=== PATIENT | female | born 1990 | race Caucasian/White ===

== ENCOUNTER → 2018-02-11 | Outpatient (CLI) | payer OTHER ==
[~2018-02-11] MED LIST: CEFAZOLIN 2 GM/50 ML (PMX) 50 ML IVPB; FENTAnyl 50 MCG/ML VIAL; LACTATED RINGER'S 1,000 ML IV*; MIDAZOLAM 1 MG/ML 2 ML INJ; ONDANSETRON 4 MG INJ; PHENYLephrine (100 MCG/ML) 5ML SYG; PROPOFOL 20 ML
[2018-02-13 11:21] LABS: PROGESTERONE 20.9 ng/mL
== END | disposition home or self-care (01) ==
LOC: SDS 19:00 → LAB 08:00 → SDS 14:47
DX: Z01.818 Encounter for other preprocedural examination (principal); S52.91XA Unspecified fracture of right forearm, initial encounter for closed fracture; X58.XXXA Exposure to other specified factors, initial encounter; Y92.89 Other specified places as the place of occurrence of the external cause
CPT/HCPCS: 76801; 76817; 84144; 84702; 84703; 86900; 86901

== ENCOUNTER 2018-02-13 13:23 | Emergency (ER) | payer OTHER ==
[2018-02-13] MEDS: SOD CHLORIDE 0.9% 500 ML IV (14:11)
[2018-02-13] MEDS: METOCLOPRAMIDE 10 MG INJ IV (14:13)
[2018-02-13] MEDS: DIPHENHYDRAMINE 50 MG INJ IV (14:13)
[2018-02-13 14:25] LABS: ADD MAN DIFF? NO
[2018-02-13 14:27] LABS: BASOPHILS % 0.4 % (0.0-2.0); EOSINOPHILS # 0.1 10^3/ul (0.0-0.5); EOSINOPHILS % 1.8 % (0.0-7.0); HEMATOCRIT 37.9 % (37.0-47.0); HEMOGLOBIN 12.1 g/dl (12.0-16.0); LYMPHOCYTES % 20.6 % (15.0-51.0); MEAN CORPUSCULAR HEMOGLOBIN 26.4 pg (29.0-33.0); MEAN CORPUSCULAR HGB CONC 31.9 g/dl (32.0-37.0); MEAN CORPUSCULAR VOLUME 82.8 fl (82.0-101.0); MEAN PLATELET VOLUME 10.1 fl (7.4-10.4); MONOCYTE # 0.4 10^3/ul (0.3-0.9); MONOCYTES % 8.8 % (0.0-11.0); NEUTROPHIL # 3.4 10^3/ul (1.6-7.5); PLATELET COUNT 357 10^3/UL (140-415); RED BLOOD COUNT 4.58 10^6/ul (4.20-5.40); RED CELL DISTRIBUTION WIDTH 14.6 % (11.5-14.5)
[2018-02-13 14:30] LABS: ADD UMIC NO; UR ASCORBIC ACID 40 mg/dL (NEGATIVE); UR BILIRUBIN (Dip) NEGATIVE (NEGATIVE); UR BLOOD (Dip) NEGATIVE (NEGATIVE); UR CLARITY CLEAR (CLEAR); UR COLOR YELLOW (YELLOW); UR GLUCOSE (Dip) NEGATIVE (NEGATIVE); UR KETONES (Dip) NEGATIVE (NEGATIVE); UR LEUKOCYTE ESTERASE (Dip) NEGATIVE Leu/ul (NEGATIVE); UR NITRITE (Dip) NEGATIVE (NEGATIVE); UR SPECIFIC GRAVITY (Dip) 1.028 (1.003-1.030); UR TOTAL PROTEIN (Dip) NEGATIVE (NEGATIVE); UR UROBILINOGEN (Dip) 1+ mg/dL (NEGATIVE)
== END 2018-02-13 16:12 | disposition home or self-care (01) ==
LOC: FTE 13:23
DX: O26.891 Other specified pregnancy related conditions, first trimester (principal); R10.2 Pelvic and perineal pain; Z3A.01 Less than 8 weeks gestation of pregnancy
CPT/HCPCS: 36415; 76801; 76817; 81003; 84702; 85025; 93005; 96374; 96375; 99285-25

== ENCOUNTER 2018-03-05 15:30 | Day surgery (SDC) | payer OTHER ==
[2018-03-05] MEDS ORDERED: LACTATED RINGER'S 1,000 ML IV* (16:00)
[2018-03-05] MEDS: CEFAZOLIN 2 GM/50 ML (PMX) 50 ML IVPB (16:00)
[2018-03-05] MEDS ORDERED: ROPIVACAINE 0.5 % 30 ML VIAL (17:43)
[2018-03-05] MEDS ORDERED: FENTAnyl 50 MCG/ML VIAL (18:05)
[2018-03-05] MEDS ORDERED: KETAMINE (100 MG/ML) 5 ML VIAL (18:16)
[2018-03-05] MEDS: BUPIVACAINE 0.5% (SDV) 30 ML INJ (18:26)
[2018-03-05] MEDS: POLYMYXIN/BACITRACIN 1L IRRIG (18:26)
[2018-03-05] MEDS ORDERED: PROPOFOL 40 ML (19:35)
[2018-03-05] MEDS ORDERED: CEFAZOLIN 1 GM INJ (19:35)
[2018-03-05] MEDS ORDERED: LIDOCAINE 2% (SDV) 5 ML INJ (19:35)
[2018-03-05] MEDS ORDERED: FENTAnyl 50 MCG/ML VIAL IV (20:00)
[2018-03-05] MEDS ORDERED: DIPHENHYDRAMINE 50 MG INJ IV (20:00)
[2018-03-05] MEDS ORDERED: HYDROmorphONE (0.2 MG/ML) 10ML SYG IV ×2 (20:00)
[2018-03-05] MEDS: ONDANSETRON 4 MG INJ IV (20:42)
== END 2018-03-05 21:12 | disposition home or self-care (01) ==
LOC: SDS 15:30
DX: S52.571D Other intraarticular fracture of lower end of right radius, subsequent encounter for closed fracture with routine healing (principal); X58.XXXD Exposure to other specified factors, subsequent encounter; G56.01 Carpal tunnel syndrome, right upper limb
CPT/HCPCS: 25609; 73110-RT; 84703